=== PATIENT | male | born 2000 | race Caucasian/White ===

== ENCOUNTER 2021-08-03 15:33 | Outpatient (REF) | payer MEDICAID, SELFPAY ==
[2021-08-05 22:46] LABS: COVID-19 RT-PCR UVMMC Result Positive (Negative)
== END 2021-08-03 15:34 | disposition home or self-care (01) ==
LOC: NCHCN 15:33
PROVIDERS: PCP Physician Assistant Medical; Visit Provider Internal Medicine
DX: Z20.822 Contact with and (suspected) exposure to COVID-19 (principal)
CPT/HCPCS: U0003

== ENCOUNTER 2022-04-19 16:16 | Outpatient (REF) | payer MEDICAID, SELFPAY ==
[2022-04-21 15:44] LABS: Chlamydia Result Negative (Negative); GC Result Negative (Negative)
== END 2022-04-19 16:17 | disposition home or self-care (01) ==
LOC: NCHCN 16:16
PROVIDERS: PCP Physician Assistant Medical; Visit Provider Nurse Practitioner Family
DX: Z11.3 Encounter for screening for infections with a predominantly sexual mode of transmission (principal)
CPT/HCPCS: 87491; 87591